=== PATIENT | female | born 1985 | race Caucasian/White ===

== ENCOUNTER 2023-10-23 10:30 | Emergency (ER) | payer SELFPAY ==
[2023-10-23 10:38] VITALS: BP 120/76; PULSE 88; RESP 18; TEMP 98; BMI 28.1
[2023-10-23 12:16] LABS: EOS % 1.6 % (0-4.5); HEMATOCRIT 37.5 % (32.4-45.2); HEMOGLOBIN 12.7 GM/dL (10.7-15.3); MCH 29.4 pg (25.7-33.7); MCHC 33.9 g/dl (32.0-36.0); MEAN CELL VOLUME 86.7 fl (80-96); MEAN PLT VOLUME 8.5 fl (7.5-11.1); MONO % 6.1 % (3.8-10.2); PLATELET COUNT 383 10^3/uL (134-434); RBC 4.33 M/mm3 (3.60-5.2); RDW 13.2 % (11.6-15.6); WHITE BLOOD COUNT 9.3 K/mm3 (4.0-10.0)
[2023-10-23 12:17] LABS: BASO % 0.3 % (0-2.0)
== END 2023-10-23 14:21 | disposition home or self-care (01) ==
LOC: JER 10:30
DX: L03.011 Cellulitis of right finger (principal); M79.5 Residual foreign body in soft tissue; M79.644 Pain in right finger(s); M79.89 Other specified soft tissue disorders; R53.83 Other fatigue
CPT/HCPCS: 36415; 73140-TC-RT-FY; 85025; 99284-25